=== PATIENT | female | born 1965 | race Caucasian/White ===

== ENCOUNTER 2016-09-01 18:45 | Emergency (ER) | payer OTHER ==
[2016-09-01 19:02] VITALS: BP 116/73; PULSE 88; TEMP 97.4; BMI 25.0
--- NOTE | 2016-09-01 19:22 | PDOC ---
[id number] [id number] ASTHMA Time Seen by Provider: 09/01/16 19:10 History Source: Patient Exam Limitations: No Limitations - History of Present Illness Initial Comments: 09/01/16 19:18 50 yr female with cough and body aches for 2 days. Pt states dark brown sputum. no fever no abd pain. history of asthma, smoker. Possible Cause: Yes: smoke exposure Past History - Past Medical History Allergies/Adverse Reactions: Allergies Allergy/AdvReac Type Severity Reaction Status Date / Time Penicillins Allergy Mild Verified 09/01/16 18:58 Home Medications: Ambulatory Orders Albuterol Sulfate Inhaler - [Ventolin HFA Inhaler -] 2 inh PO Q4H #1 inh Montelukast Na [Singulair -] 10 mg PO HS #30 tablet 02/01/14 Salmeterol/Fluticasone [Advair 250Mcg/50Mcg] 1 inh IH DAILY #1 inh 02/01/14 Azithromycin [Zithromax 250mg Tablets -] 250 mg PO UTDICT #6 tab 09/01/16 Benzonatate [Tessalon Pearls -] 200 mg PO TID PRN #42 cap 09/01/16 Prednisone [Deltasone -] 40 mg PO DAILY #10 tablet 09/01/16 Asthma: Yes - Psycho/Social/Smoking Cessation Hx Anxiety: No Suicidal Ideation: No Smoking Status: No Smoking History: Former smoker Have you smoked in the past 12 months: No Number of Cigarettes Smoked Daily: 0 Information on smoking cessation initiated: No Hx Alcohol Use: No Substance Use Type: None Respiratory Specific PMHX - Complaint Specific PMHX Angina: No Bronchitis: Yes Pneumonia: Yes Review of Systems - Review of Systems Able to Perform ROS?: Yes Is the patient limited [place] proficient: No Constitutional: Yes: Symptoms Reported, See HPI, Malaise HEENTM: No: Symptoms Reported Respiratory: Yes: Cough Cardiac (ROS): No: Symptoms Reported ABD/GI: No: Symptoms Reported, Other : No: Symptoms Reported Musculoskeletal: No: Symptoms Reported Integumentary: No: Symptoms Reported Neurological: No: Symptoms reported *Physical Exam - Vital Signs Last Vital Signs Temp Pulse Resp BP Pulse Ox 97.4 F L 88 21 116/73 97 09/01/16 18:58 09/01/16 18:58 09/01/16 18:58 09/01/16 18:58 09/01/16 18:58 - Physical Exam General Appearance: Yes: Nourished, Appropriately Dressed HEENT: positive: EOMI, PATIENCE, Normal ENT Inspection, TMs Normal, Pharynx Normal Neck: positive: Supple. negative: Tender, Tender lateral, Tender midline Respiratory/Chest: positive: Crackles (right lower base). negative: Chest Tender Cardiovascular: positive: Regular Rhythm, Regular Rate ED Treatment Course - RADIOLOGY Radiology Studies Ordered: Category Date Time Status CHEST PA & LAT [RAD] Stat Radiology 09/01/16 19:11 Ordered Medical Decision Making - Medical Decision Making 09/01/16 19:20 cc: cough body aches for 2 days will check for flu, cxr no wheezing flu negative, non toxic appearing vitals stable 09/04/16 11:26 cxr negative dc inst discussed with pt understands and agrees with plan of care *DC/Admit/Observation/Transfer Diagnosis at time of Disposition: Bronchitis - Discharge Dispostion Disposition: HOME Condition at time of disposition: Good - Prescriptions Prescriptions: Prednisone [Deltasone -] 40 mg PO DAILY #10 tablet Benzonatate [Tessalon Pearls -] 200 mg PO TID PRN #42 cap PRN Reason: Cough Azithromycin [Zithromax 250mg Tablets -] 250 mg PO UTDICT #6 tab - Referrals Referrals: STAFF,NOT ON [Primary Care Provider] - - Patient Instructions Additional Instructions: drink pleanty of fluids to stay well hydrated take the prescribed medication as directed get pleanty of rest follow with your doctor in 2-3 days if not improving Return to ER for any worsening symptoms
== END 2016-09-01 20:07 | disposition home or self-care (01) ==
LOC: JERFT 18:45
DX: J40 Bronchitis, not specified as acute or chronic (principal)
CPT/HCPCS: 71020-TC; 87804; 99281-25

== ENCOUNTER 2017-04-26 22:57 | Emergency (ER) | payer OTHER ==
[2017-04-26 23:22] VITALS: BP 114/68; PULSE 83; TEMP 98.1; BMI 25.0
--- NOTE | 2017-04-27 01:52 | PDOC ---
History of Present Illness - General History Source: Patient Exam Limitations: No Limitations - History of Present Illness Initial Comments: 04/27/17 02:07 The patient is a 51 year old female with a significant past medical history of asthma, who presents to the ED with right eye irritation. Patient had a stye in the right eye starting 2 days ago. Today she woke up with pink eye and swollen eyelid. Patient denies eye discharge. Patient denies fever, chills, nausea, vomiting, diarrhea. Patient is otherwise healthy. <Bismark Mohan - Last Filed: 04/27/17 02:40> <Claudia Walsh - Last Filed: 04/27/17 03:48> - General Chief Complaint: Eye Problem Stated Complaint: RIGHT EYE PAIN Time Seen by Provider: 04/27/17 00:02 Past History <Bismark Mohan - Last Filed: 04/27/17 02:40> - Past Medical History Asthma: Yes - Suicide/Smoking/Psychosocial Hx Smoking Status: No Smoking History: Never smoked Have you smoked in the past 12 months: No Number of Cigarettes Smoked Daily: 0 Information on smoking cessation initiated: No Hx Alcohol Use: No Drug/Substance Use Hx: No Substance Use Type: None <Claudia Walsh - Last Filed: 04/27/17 03:48> - Past Medical History Allergies/Adverse Reactions: Allergies Allergy/AdvReac Type Severity Reaction Status Date / Time Penicillins Allergy Mild Verified 04/26/17 23:20 Home Medications: Ambulatory Orders Albuterol Sulfate Inhaler - [Ventolin HFA Inhaler -] 2 inh PO Q4H #1 inh Montelukast Na [Singulair -] 10 mg PO HS #30 tablet 02/01/14 Salmeterol/Fluticasone [Advair 250Mcg/50Mcg] 1 inh IH DAILY #1 inh 02/01/14 Azithromycin [Zithromax 250mg Tablets -] 250 mg PO UTDICT #6 tab 09/01/16 Benzonatate [Tessalon Pearls -] 200 mg PO TID PRN #42 cap 09/01/16 Prednisone [Deltasone -] 40 mg PO DAILY #10 tablet 09/01/16 Clindamycin [Cleocin -] 300 mg PO Q6HPO #20 capsule 04/27/17 Erythromycin 0.5% Eye Ointment [Erythromycin 0.5% Eye Ointment -] 1 applic OD TID #1 tube 04/27/17 Review of Systems - Review of Systems Able to Perform ROS?: Yes Comments:: 04/27/17 02:07 GENERAL/CONSTITUTIONAL: No fever or chills. No weakness. HEAD, EYES, EARS, NOSE AND THROAT: + right eye has pink eye. + irritation to the right eye. No change in vision. No ear pain or discharge. No sore throat. CARDIOVASCULAR: No chest pain or shortness of breath. RESPIRATORY: No cough, wheezing, or hemoptysis. GASTROINTESTINAL: No nausea, vomiting, diarrhea or constipation. GENITOURINARY: No dysuria, frequency, or change in urination. MUSCULOSKELETAL: No joint or muscle swelling or pain. No neck or back pain. SKIN: No rash NEUROLOGIC: No headache, vertigo, loss of consciousness, or change in strength/ sensation. ENDOCRINE: No increased thirst. No abnormal weight change. HEMATOLOGIC/LYMPHATIC: No anemia, easy bleeding, or history of blood clots. ALLERGIC/IMMUNOLOGIC: No hives or skin allergy. <Bismark Mohan - Last Filed: 04/27/17 02:40> *Physical Exam - Vital Signs Last Vital Signs Temp Pulse Resp BP Pulse Ox 98.1 F 83 18 114/68 97 04/26/17 23:20 04/26/17 23:20 04/26/17 23:20 04/26/17 23:20 04/26/17 23:20 - Physical Exam Comments: 04/27/17 02:08 GENERAL: Awake, alert, and fully oriented, in no acute distress HEAD: No signs of trauma EYES: right eye was pink minimally. Upper and lower eyelid swelling. 1cm Linear diagonal Scratch at the lower end of the right eye. No pain with movement of the eye. PERRLA, EOMI, sclera anicteric, conjunctiva clear. ENT: Auricles normal inspection, hearing grossly normal, nares patent, oropharynx clear without exudates. Moist mucosa NECK: Normal ROM, supple, no lymphadenopathy, JVD, or masses LUNGS: Breath sounds equal, clear to auscultation bilaterally. No wheezes, and no crackles HEART: Regular rate and rhythm, normal S1 and S2, no murmurs, rubs or gallops ABDOMEN: Soft, nontender, normoactive bowel sounds. No guarding, no rebound. No masses EXTREMITIES: Normal range of motion, no edema. No clubbing or cyanosis. No cords, erythema, or tenderness NEUROLOGICAL: Cranial nerves II through XII grossly intact. Normal speech, normal gait SKIN: Warm, Dry, normal turgor, no rashes or lesions noted. <Bismark Mohan - Last Filed: 04/27/17 02:40> - Vital Signs Last Vital Signs Temp Pulse Resp BP Pulse Ox 98.1 F 83 18 114/68 97 04/26/17 23:20 04/26/17 23:20 04/26/17 23:20 04/26/17 23:20 04/26/17 23:20 <Claudia Walsh - Last Filed: 04/27/17 03:48> Medical Decision Making - Medical Decision Making 04/27/17 03:45 Pt had a right eye stye 3 days ago. Now with blepharitis upper and lower lids. Pt also has redness and FB sensation in the right eye. Fluorescine stain shows a corneal abrasion. Pt will be treated with erythromycin ointment, and she will be given oral abx for her eyelids. Clinda x 5 days. Follow with applications consultant. Pt has poor vision bilaterally. 20/70 in left eye and 20/100 in the affected right eye. <Claudia Walsh - Last Filed: 04/27/17 03:48> *DC/Admit/Observation/Transfer - Attestations Scribe Attestion: 04/27/17 02:08 Documentation prepared by Bismark Mohan, acting as medical administrative specialist for Claudia Walsh MD. <Bismark Mohan - Last Filed: 04/27/17 02:40> - Discharge Dispostion Admit: No <Claudia Walsh - Last Filed: 04/27/17 03:48> Diagnosis at time of Disposition: Corneal abrasion, Eyelid cellulitis - Discharge Dispostion Disposition: HOME Condition at time of disposition: Stable - Prescriptions Prescriptions: Clindamycin [Cleocin -] 300 mg PO Q6HPO #20 capsule Erythromycin 0.5% Eye Ointment [Erythromycin 0.5% Eye Ointment -] 1 applic OD TID #1 tube - Referrals Referrals: Clyde Murrya MD [Staff Physician] - - Patient Instructions Printed Discharge Instructions: DI for Corneal Abrasion, DI for Blepharitis
[2017-04-27] MEDS ORDERED: ERYTHROMYCIN 0.5% OPHTHALMIC OINTMENT 3.5 GM TUBE OD ONE (02:04)
[2017-04-27] MEDS ORDERED: TETRACAINE 0.5% HCL 0.6ML DROPPER.BOTTLE OD ONE (02:05)
[2017-04-27] MEDS ORDERED: FLUORESCEIN NA 1 EA STRIP ONE (02:26)
[2017-04-27] MEDS ORDERED: TETRACAINE 0.5% OPHTH SOLN 2 ML BOTTLE ONE (02:26)
[2017-04-27] MEDS ORDERED: ERYTHROMYCIN 0.5% OPHTHALMIC OINTMENT 3.5 GM TUBE ONE (02:27)
== END 2017-04-27 03:56 | disposition home or self-care (01) ==
LOC: JER 22:57
PROC: 4A07X0Z Measurement of Visual Acuity, External Approach (ICD-10-PCS; principal; 2017-04-26)
DX: S05.01XA Injury of conjunctiva and corneal abrasion without foreign body, right eye, initial encounter (principal); S00.201A Unspecified superficial injury of right eyelid and periocular area, initial encounter; X58.XXXA Exposure to other specified factors, initial encounter; Y92.89 Other specified places as the place of occurrence of the external cause; Y99.8 Other external cause status
CPT/HCPCS: 99282-25